=== PATIENT | male | born 1985 | race Caucasian/White ===

== ENCOUNTER 2019-10-18 22:51 | Emergency (ER) | payer OTHER ==
[2019-10-18] MEDS ORDERED: NS 0.9% 1000 ML** 1,000 ML IV ONE (23:40)
[2019-10-19 00:55] LABS: ABS Basophils 0.1 10^3/ul (0-0.2); ABS Eosinophils 0.5 10^3/ul (0-0.6); ABS Lymphocytes 2.4 10^3/ul (1.0-4.8); ABS Monocytes 1.1 10^3/ul (0-0.8); Eosinophil % 6.2 %; Hematocrit 47 % (42-52); Lymphocyte % 30.1 %; Mean Corpuscular HGB Conc 34 g/dL (31-36); Mean Corpuscular Hemoglobin 31 pg (27-31); Mean Corpuscular Volume 91 fL (80-94); Nucleated Red Blood Cells % 0.1; Platelet Count 312 10^3/uL (150-450); Red Blood Count 5.12 10^6 /uL (4.18-5.48); Red Cell Distribution Width 14 % (10-15)
[2019-10-19 01:11] LABS: Albumin 4.1 g/dL (3.2-5.2); Albumin/Globulin Ratio 1.6 (1-3); BUN/Creatinine Ratio 18.2 (8-20); C Reactive Protein 1.92 mg/L (<8.01); Calcium 9.2 mg/dL (8.6-10.3); EGFR Non-African American 87.6 (>60); Globulin 2.6 g/dL (2-4); Potassium 3.8 mmol/L (3.5-5.0); Total Bilirubin 0.3 mg/dL (0.2-1.0); Total Protein 6.7 g/dL (6.4-8.9)
[2019-10-19 01:22] LABS: Influenza A Molecular Negative (Negative); Influenza B Molecular Negative (Negative)
--- NOTE | 2019-10-19 01:39 | ED ---
Influenza-Like Illness - HPI Summary HPI Summary: Patient is a 34 year-old male presenting to [facility] with a chief complaint of influenza-like illness since 10/15/2019. He reports his symptoms began with nausea and vomiting. Later in the day, he developed a sore throat, runny nose, and dry cough. His symptoms have since persisted. He denies any fevers, diarrhea , abdominal pain, chest pain, or shortness of breath. Symptoms rated 0/10 in severity now. He has not taken any medications for treatment. No recent travel or known COVID-19 exposures. Past medical history includes tonsillectomy. Current smoker, rare EtOH, marijuana use. Medications reviewed. Allergies noted. - History of Current Complaint Chief Complaint: EDFluSymptoms Time Seen by Provider: 10/18/19 23:39 Hx Obtained From: Patient Onset/Duration: Still Present Severity: Mild Associated Signs & Symptoms: Cough, Sore Throat, Nasal Congestion, Vomiting Related Hx: Smoking - Allergy/Home Medications Allergies/Adverse Reactions: Allergies Allergy/AdvReac Type Severity Reaction Status Date / Time No Known Allergies Allergy Verified 05/13/15 15:48 Home Medications: Home Medications ceFIXime [Suprax] 400 mg PO BID #7 cap 03/22/16 [Rx] HYDROcodone/ACETAMIN 5-325 MG* [[place] 5-325 TAB*] 1 tab PO Q4H PRN #15 tab MDD 4 05/22/16 [Rx] PMH/Surg Hx/FS Hx/Imm Hx Endocrine/Hematology History: Reports: Other Endocrine/Hematological Disorders - obesity Musculoskeletal History: Reports: Hx Back Problems - chronic back pain - Surgical History Surgical History: Yes Surgery Procedure, Year, and Place: tonsillectomy - Immunization History Date of Tetanus Vaccine: unknown Date of Influenza Vaccine: none Infectious Disease History: No Infectious Disease History: Denies: Traveled Outside the [place] in Last 30 Days - Family History Known Family History: Positive: Hypertension, Diabetes - Social History Alcohol Use: Rare Hx Substance Use: Yes Substance Use Type: Reports: Marijuana Hx Tobacco Use: Yes Smoking Status (MU): Light Every Day Tobacco Smoker Amount Used/How Often: 1/2PPD - Additional Comments History Additional Comments: tonsillectomy, current smoker Review of Systems - ROS Summary Review of Systems Summary: Home Medications Medication Instructions Recorded Confirmed Type ceFIXime [Suprax] 400 mg PO BID #7 cap 03/22/16 Rx HYDROcodone/ACETAMIN 5-325 MG* 1 tab PO Q4H PRN #15 tab MDD 4 05/22/16 Rx [[place] 5-325 TAB*] Negative: Fever Positive: Sore Throat, Nasal Discharge Negative: Chest Pain Positive: Cough - dry. Negative: Shortness Of Breath Positive: Vomiting, Nausea. Negative: Abdominal Pain All Other Systems Reviewed And Are Negative: Yes Physical Exam - Summary Physical Exam Summary: General: Well-developed, Morbidly obese male. No acute distress. HEENT: Normocephalic, Atraumatic. Nose: Congested. Eyes: Conjuctiva normal, PERRL. Oropharynx: Clear, mucous membranes moist, (-) exudates. Neck: Soft, FROM, (-) lymphadenopathy, (-) thyromegaly, (-) JVD. Cardiovascular: Normal sinus rhythm, (-) murmur. Lungs: Transmitted upper airway noises, (-) wheezes, (-) rales, (-) rhonchi. Abdomen: Soft, non-tender, non-distended, (-) organomegaly, normal bowel sounds. Back: (-) CVA tenderness Extremities: No edema. Skin: Warm, dry, (-) rash. Neuro: Alert and oriented x3, moves all extremities equally. No ataxia. No gait disturbance. No sensory deficit. Normal strength, normal sensation. Psychiatric: Mood normal, affect normal. Triage Information Reviewed: Yes Vital Signs On Initial Exam: Initial Vitals Temp Pulse Resp BP Pulse Ox 97 F 87 18 128/87 97 10/18/19 23:21 10/18/19 23:21 10/18/19 23:21 10/18/19 23:21 10/18/19 23:21 Vital Signs Reviewed: Yes Procedures - Sedation Patient Received Moderate/Deep Sedation with Procedure: No Diagnostics - Vital Signs Vital Signs Temp Pulse Resp BP Pulse Ox 10/18/19 23:21 97 F 87 18 128/87 97 - Laboratory Lab Results: Lab Results 10/19/19 10/19/19 10/19/19 Range/Units 00:34 00:34 00:34 WBC 8.0 (3.5-10.8) 10^3/uL RBC 5.12 (4.18-5.48) 10^6 /uL Hgb 16.0 (14.0-18.0) g/dL Hct 47 (42-52) % MCV 91 (80-94) fL MCH 31 (27-31) pg MCHC 34 (31-36) g/dL RDW 14 (10-15) % Plt Count 312 (150-450) 10^3/uL MPV 9.0 (7.4-10.4) fL Neut % (Auto) 49.4 % Lymph % (Auto) 30.1 % [place] % (Auto) 13.7 % Eos % (Auto) 6.2 % Baso % (Auto) 0.6 % Absolute Neuts (auto) 4.0 (1.5-7.7) 10^3/ul Absolute Lymphs (auto) 2.4 (1.0-4.8) 10^3/ul Absolute Monos (auto) 1.1 H (0-0.8) 10^3/ul Absolute Eos (auto) 0.5 (0-0.6) 10^3/ul Absolute Basos (auto) 0.1 (0-0.2) 10^3/ul Absolute Nucleated RBC 0.0 10^3/ul Nucleated RBC % 0.1 Sodium 137 (135-145) mmol/L Potassium 3.8 (3.5-5.0) mmol/L Chloride 105 (101-111) mmol/L Carbon Dioxide 26 (22-32) mmol/L Anion Gap 6 (2-11) mmol/L BUN 18 (6-24) mg/dL Creatinine 0.99 (0.67-1.17) mg/dL Est GFR ( Amer) 106.0 (>60) Est GFR (Non-Af Amer) 87.6 (>60) BUN/Creatinine Ratio 18.2 (8-20) Glucose 104 H (70-100) mg/dL Lactic Acid 0.9 (0.5-2.0) mmol/L Calcium 9.2 (8.6-10.3) mg/dL Total Bilirubin 0.30 (0.2-1.0) mg/dL AST 24 (13-39) U/L ALT 60 H (7-52) U/L Alkaline Phosphatase 53 (34-104) U/L C-Reactive Protein 1.92 (<8.01) mg/L Total Protein 6.7 (6.4-8.9) g/dL Albumin 4.1 (3.2-5.2) g/dL Globulin 2.6 (2-4) g/dL Albumin/Globulin Ratio 1.6 (1-3) Influenza A (Rapid) (Negative) Influenza B (Rapid) (Negative) 10/19/19 Range/Units 00:34 WBC (3.5-10.8) 10^3/uL RBC (4.18-5.48) 10^6 /uL Hgb (14.0-18.0) g/dL Hct (42-52) % MCV (80-94) fL MCH (27-31) pg MCHC (31-36) g/dL RDW (10-15) % Plt Count (150-450) 10^3/uL MPV (7.4-10.4) fL Neut % (Auto) % Lymph % (Auto) % [place] % (Auto) % Eos % (Auto) % Baso % (Auto) % Absolute Neuts (auto) (1.5-7.7) 10^3/ul Absolute Lymphs (auto) (1.0-4.8) 10^3/ul Absolute Monos (auto) (0-0.8) 10^3/ul Absolute Eos (auto) (0-0.6) 10^3/ul Absolute Basos (auto) (0-0.2) 10^3/ul Absolute Nucleated RBC 10^3/ul Nucleated RBC % Sodium (135-145) mmol/L Potassium (3.5-5.0) mmol/L Chloride (101-111) mmol/L Carbon Dioxide (22-32) mmol/L Anion Gap (2-11) mmol/L BUN (6-24) mg/dL Creatinine (0.67-1.17) mg/dL Est GFR ( Amer) (>60) Est GFR (Non-Af Amer) (>60) BUN/Creatinine Ratio (8-20) Glucose (70-100) mg/dL Lactic Acid (0.5-2.0) mmol/L Calcium (8.6-10.3) mg/dL Total Bilirubin (0.2-1.0) mg/dL AST (13-39) U/L ALT (7-52) U/L Alkaline Phosphatase (34-104) U/L C-Reactive Protein (<8.01) mg/L Total Protein (6.4-8.9) g/dL Albumin (3.2-5.2) g/dL Globulin (2-4) g/dL Albumin/Globulin Ratio (1-3) Influenza A (Rapid) Negative (Negative) Influenza B (Rapid) Negative (Negative) Result Diagrams: 10/19/19 00:34 10/19/19 00:34 Lab Statement: Any lab studies that have been ordered have been reviewed, and results considered in the medical decision making process. - Radiology CXR Radiology Interpretation Completed By: ED Physician Summary of Radiographic Findings: No infiltrate. No pleural effusion. This imaging scan was reviewed and interpreted by Dr. Myles, pending official read. Re-Evaluation - Re-Evaluation First Eval Re-Evaluation Time: 01:40 Comment: I discussed all results. Discussed all symptoms that warrant return to the ED. Flu Symptom Course/Dx - Course Course Of Treatment: 34 year male presents from home with 4 days of acute illness. With vomiting and diarrhea. Has also developed congestion, runny nose and cough. No fevers. Has not taken any medication for his symptoms. Patient states his girlfriend is concerned about his symptoms because she googled them. Made him come in for evaluation. Patient is not ill-appearing. On physical exam he has no significant findings. Patient given IV fluids. Patient discharged home. Advised plenty of rest and fluids. Tylenol and ibuprofen as needed. Off work Monday. Follow up with PCP. Follow up sooner for any worsening symptoms. - Diagnoses Provider Diagnoses: Viral syndrome, Tobacco use Discharge ED - Sign-Out/Discharge Documenting (check all that apply): Patient Departure - Patient will be discharged home. - Discharge Plan Condition: Stable Disposition: HOME Patient Education Materials: How to Stop Smoking (ED), Viral Syndrome (ED) Forms: *Work Release Referrals: Cristy Collier [facility] [Primary Care Provider] - 3 Days Additional Instructions: Follow up with your primary care provider in 2-3 days. Return to the emergency department for any new or worsening symptoms. - Billing Disposition and Condition Condition: STABLE Disposition: Home - Attestation Statements Document Initiated by Scribe: Yes Documenting Scribe: Celena Oneal Provider For Whom Scribe is Documenting (Include Credential): Jelly Reddick, MD Scribe Attestation: I, Celena Oneal, scribed for Jelly Myles MD on 10/19/19 at 0524. Scribe Documentation Reviewed: Yes Provider Attestation: The documentation as recorded by the scribe, Celena Oneal accurately reflects the service I personally performed and the decisions made by me, Jelly Myles MD Status of Scribe Document: Viewed
[2019-10-19 01:54] VITALS: BP 163/121
== END 2019-10-19 01:54 | disposition home or self-care (01) ==
LOC: ED 22:51
DX: B34.9 Viral infection, unspecified (principal); R05 Cough; J02.9 Acute pharyngitis, unspecified; R09.81 Nasal congestion; R11.10 Vomiting, unspecified; F17.210 Nicotine dependence, cigarettes, uncomplicated
CPT/HCPCS: 36415; 71045; 80053; 83605; 85025; 86140; 99282